=== PATIENT | male | born 1950 | race Caucasian/White ===

== ENCOUNTER → 2017-11-30 | Outpatient (CLI) | payer MEDICARE ==
[~2017-11-30] MED LIST: LOSA50TA6 PO
== END | disposition home or self-care (01) ==
LOC: CFH 08:14
PROVIDERS: ATTEND Nurse Practitioner Primary Care
DX: M81.0 Age-related osteoporosis without current pathological fracture (principal)
CPT/HCPCS: 77080

== ENCOUNTER 2018-08-15 12:04 | Day surgery (SDC) | payer MEDICARE ==
[~2018-08-15] VITALS: Ht 177.8 cm; Wt 72.7 kg
[~2018-08-15 12:04] MED LIST changes: +LOSA50TA14 PO; -LOSA50TA6 PO
[2018-08-15 14:32] VITALS: BP 156/83
[2018-08-15] MEDS ORDERED: LIDOCAINE-MPF 1%, 5ML ONE (14:56)
== END 2018-08-15 15:59 | disposition home or self-care (01) ==
LOC: CACL 12:04
PROVIDERS: ATTEND Internal Medicine Cardiovascular Disease
DX: I83.11 Varicose veins of right lower extremity with inflammation (principal)
CPT/HCPCS: 36482; C1894

== ENCOUNTER → 2018-08-17 | Outpatient (CLI) | payer MEDICARE | END | disposition home or self-care (01) | LOC: CVU 10:49 | PROVIDERS: ATTEND Internal Medicine Cardiovascular Disease | DX: I87.2 Venous insufficiency (chronic) (peripheral) (principal) | CPT/HCPCS: 93971 ==

== ENCOUNTER 2020-12-21 13:30 | Outpatient (CLI) | payer MEDICARE | END 2020-12-21 23:59 | disposition home or self-care (01) | LOC: CVU 13:30 | PROVIDERS: ATTEND Student in an Organized Health Care Education/Training Program | DX: I87.2 Venous insufficiency (chronic) (peripheral) (principal); I73.9 Peripheral vascular disease, unspecified; M79.662 Pain in left lower leg; I86.8 Varicose veins of other specified sites | CPT/HCPCS: 93970 ==